=== PATIENT | female | born 1955 ===

== ENCOUNTER 2018-06-14 07:05 | Day surgery (SDC) | payer BC, OTHER ==
[2018-06-14 07:26] VITALS: BMI 29.7
[2018-06-14] MEDS ORDERED: Lactated Ringer's 500 ML IV ONE (07:29)
[2018-06-14] MEDS ORDERED: Propofol 10 mg/ml Inj (20 ML) ONE (07:32)
[2018-06-14 09:41] VITALS: BP 114/76; PULSE 63; RESP 16; TEMP 97.6; O2SAT 100
== END 2018-06-14 12:18 | disposition home or self-care (01) ==
LOC: H.ENDO 07:05
PROVIDERS: ATTEND Internal Medicine Gastroenterology
DX: Z12.11 Encounter for screening for malignant neoplasm of colon (principal); K64.1 Second degree hemorrhoids; K57.30 Diverticulosis of large intestine without perforation or abscess without bleeding; E11.9 Type 2 diabetes mellitus without complications
CPT/HCPCS: 82948; G0121; J2001; J2704; J7120